=== PATIENT | female | born 1945 ===

== ENCOUNTER → 2017-09-09 07:05 | Outpatient (CLI) | payer OTHER ==
[~2017-09-09 07:05] MED LIST: CIPRO500 MG PO; INTESTINEX1 CA1 PO; ULTRACET PO
== END | disposition home or self-care (01) ==
LOC: LAB 07:05
DX: C73 Malignant neoplasm of thyroid gland (principal); E89.0 Postprocedural hypothyroidism

== ENCOUNTER 2017-09-19 08:31 | Outpatient (CLI) | payer OTHER | END 2017-09-19 08:33 | disposition home or self-care (01) | LOC: LAB 08:31 | DX: C73 Malignant neoplasm of thyroid gland (principal); E89.0 Postprocedural hypothyroidism ==

== ENCOUNTER → 2017-09-23 11:02 | Outpatient (CLI) | payer OTHER | END | disposition home or self-care (01) | LOC: LAB 11:02 | DX: C73 Malignant neoplasm of thyroid gland (principal); E89.0 Postprocedural hypothyroidism ==

== ENCOUNTER 2017-09-23 11:22 | Outpatient (CLI) | payer OTHER | END 2017-09-23 15:08 | disposition home or self-care (01) | LOC: NUCLEAR 11:22 | DX: C73 Malignant neoplasm of thyroid gland (principal) | CPT/HCPCS: 78018; 78020; A9528 ==

== ENCOUNTER 2020-10-03 13:02 | Outpatient (CLI) | payer OTHER | END 2020-10-03 13:04 | disposition home or self-care (01) | LOC: NUCLEAR 13:02 | PROVIDERS: ATTEND Internal Medicine Sports Medicine | DX: C73 Malignant neoplasm of thyroid gland (principal) | CPT/HCPCS: 79005; A9517 ==